=== PATIENT | male | born 1990 | race African-American/Black ===

== ENCOUNTER 2017-04-20 23:41 | Emergency (ER) | payer SELFPAY ==
[~2017-04-20] VITALS: Ht 185.4 cm; Wt 86.4 kg
[2017-04-20 23:49] VITALS: Ht 185.4 cm; Wt 86.4 kg
[2017-04-21] MEDS ORDERED: ONDANSETRON (ODT) 4 MG TAB ODT STA (01:12)
--- NOTE | 2017-04-21 06:19 | ERD ---
ER Documentation Chief Complaint Date/Time DATE: 04/21/17 TIME: 06:15 Chief Complaint BIBA RA 39, ALOC,empty Seroquel inside back pack found HPI 26-year-old male brought in by ambulance for being found near a bus stop drunk. Cervical is found on the patient. The patient is able to answer questions but is very intoxicated at this point. Denies trauma and has no signs of trauma. Unable to provide good history currently. Admits to drinking alcohol. ROS Unobtainable. Allergies Allergies: Coded Allergies: No Known Allergy (Unverified , 04/20/17) PMhx/Soc Medical and Surgical Hx: Unable to obtain Smoking Status: Unknown if ever smoked Physical Exam Vitals Vital Signs Date Time Temp Pulse Resp B/P Pulse Ox O2 Delivery O2 Flow Rate FiO2 04/21/17 04:56 103 18 103/54 99 Room Air 04/21/17 02:46 97 18 112/68 100 04/20/17 23:49 96.9 94 18 106/62 100 04/20/17 23:47 97.0 107 18 133/67 97 Physical Exam Const: [] No distress, appears intoxicated Head: Atraumatic Eyes: Normal Conjunctiva, EOMI, PERRLA ENT: Normal External Ears, Nose and Mouth. Neck: Full range of motion..~ No meningismus. Resp: Clear to auscultation bilaterally Cardio: Regular rate and rhythm, no murmurs Abd: Soft, non tender, non distended. Normal bowel sounds Skin: No petechiae or rashes Back: No midline or flank tenderness Ext: No cyanosis, or edema Neur: Awake and alert and oriented 3, somnolent, slurred speech, no focal deficits Psych: Normal Mood and Affect Results 24 hrs Current Medications Medications (Trade) Dose Ordered Sig/Britton Route PRN Reason Start Time Stop Time Status Last Admin Dose Admin Ondansetron HCl (Zofran Odt) 4 mg ONCE STAT ODT 04/21/17 01:12 04/21/17 01:13 DC 04/21/17 01:26 Procedures/MDM Acute alcohol intoxication. No trauma. Was concerned for coingestion with Seroquel initially. Patient reserved the emergency room for over 6 hours and was stable on monitor and gradually became sober. Eventually was talkative clinically sober and stated he did not she take his Seroquel but he was drinking heavily. He has a normal neurological exam currently. Denies any pain I spoke to him regarding alcohol overdose. Going to discharge with primary care follow-up and return precautions to the ER. EKG interpretation: Normal sinus rhythm rate of 90, normal axis, normal intervals, no ST or T-wave changes concerning for acute ischemia. ekg monitor tech interpretation: Normal sinus rhythm without arrhythmia. Departure Diagnosis: Primary Impression: Alcohol intoxication Condition: Stable Patient Instructions: Alcohol Overdose Referrals: [facility] YOU HAVE RECEIVED A MEDICAL SCREENING EXAM AND THE RESULTS INDICATE THAT YOU DO NOT HAVE A CONDITION THAT REQUIRES URGENT TREATMENT IN THE EMERGENCY DEPARTMENT. FURTHER EVALUATION AND TREATMENT OF YOUR CONDITION CAN WAIT UNTIL YOU ARE SEEN IN YOUR DOCTORS OFFICE WITHIN THE NEXT 1-2 DAYS. IT IS YOUR RESPONSIBILITY TO MAKE AN APPOINTMENT FOR FOLOW-UP CARE. IF YOU HAVE A PRIMARY DOCTOR --you should call your primary doctor and schedule an appointment IF YOU DO NOT HAVE A PRIMARY DOCTOR YOU CAN CALL OUR PHYSICIAN REFERRAL HOTLINE AT IF YOU CAN NOT AFFORD TO SEE A PHYSICIAN YOU CAN CHOSE FROM THE FOLLOWING [facility] [address] [facility] [facility] [address] [employer] [facility] [facility] [address] [facility] [facility] [address] [facility]. [facility] [address] [facility]. [facility]. [address] Additional Instructions: Call your primary care doctor TOMORROW for an appointment during the next 1-2 days.See the doctor sooner or return here if your condition worsens before your appointment time. HEBERT MORALES DO April 21, 2017 06:19
[2017-04-21 06:22] VITALS: BP 110/64; PULSE 90; RESP 18; TEMP 98.2
== END 2017-04-21 06:25 | disposition home or self-care (01) ==
LOC: E/R 23:41
DX: F10.120 Alcohol abuse with intoxication, uncomplicated (principal); R40.2352 Coma scale, best motor response, localizes pain, at arrival to emergency department; R40.2122 Coma scale, eyes open, to pain, at arrival to emergency department
CPT/HCPCS: 93005